=== PATIENT | male | born 1940 | race Caucasian/White ===

== ENCOUNTER 2017-08-03 07:37 | Outpatient (CLI) | payer MEDICARE, BC ==
[2017-08-03 08:20] LABS: Estimated GFR-MDRD - POC Greater than 90
[2017-08-03 08:32] LABS: Bilirubin Negative (Negative); Blood, Urine Negative (Negative); Clarity CLEAR (Clear); Glucose, Urine (Dipstick) Negative (Negative); Leukocyte Negative (Negative); Nitrite Negative (Negative); Protein, Urine (Dipstick) Negative (Neg-Trace); Specific Gravity, Urine 1.013 (1.002-1.036); Urobilinogen 0.2 mg/dL (0.2-1.0); pH, Urine 6.5 (5.0-9.0)
[2017-08-03 08:34] LABS: Bacteria/HPF None Seen HPF (None Seen); Hyaline Casts/LPF 0-3 HYALINE CAST LPF (0-3 Hyaline); RBC/HPF 0-3 HPF (0-3); Squamous Epithelial None Seen HPF (0-3); WBC/HPF None Seen HPF (0-3)
--- NOTE | 2017-08-03 10:13 | CT ---
CT OF THE ABDOMEN AND PELVIS WITHOUT AND WITH CONTRAST: COMPARISON: None. HISTORY: Gross hematuria for a month. History of renal stones. History of colon cancer. TECHNIQUE: Multiple contiguous axial images were obtained in a CT of the abdomen and pelvis without and with IV contrast. Postcontrast images were obtained in the nephrographic and excretory phases. Coronal refo rmats were performed. FINDINGS: There are subcentimeter hypodensities in the liver which are too small to definitely characterize but likely represent cysts. There are hypodensities in both kidneys measuring up to 3.8 cm in size whic h represent simple cysts. No suspicious lesions are seen in either kidney. There is a punctate 1 mm calcification in the mid portion of the right kidney. No other calcifications are seen I neither ki dney. No hydronephrosis is seen. Both renal collecting systems are normal in appearance without yunior ling defect. The prostate is enlarged. There is mild thickening of the anterior aspect of the urina ry bladder wall without focal bladder mass. The gallbladder, adrenal glands, spleen, and pancreas are unremarkable. No free air, free fluid, or stranding changes are seen in the abdomen or pelvis. The large and small bowel are unremarkable. The appendix is not seen and may have been removed. No abdominal or pelvic lymphadenopathy are seen. Atherosclerotic calcifications are seen in the aorta. Degenerative changes are seen in the spine. The visualized inferior thorax and abdominal wall soft t issues are unremarkable. IMPRESSION: 1. Bilateral renal cysts. 2. Hepatic cysts. 3. Nonobstructing small right renal calcification. POS: [facility]
[2017-08-03] MEDS ORDERED: Iopamidol 370 76% 100 ML VIAL ONE (16:42)
== END 2017-08-03 07:38 | disposition home or self-care (01) ==
LOC: CT 07:37
PROVIDERS: ATTEND Urology
DX: R31.0 Gross hematuria (principal); N28.1 Cyst of kidney, acquired; N20.0 Calculus of kidney; K76.89 Other specified diseases of liver
CPT/HCPCS: 74178; 81001; 82565; 87086

== ENCOUNTER 2017-10-03 06:43 | Emergency (ER) | payer MEDICARE, BC ==
[2017-10-03] MEDS ORDERED: diphenhydrAMINE 50 MG/ML VIAL ONE (07:19)
[2017-10-03] MEDS ORDERED: Water For Inject, Bacteriostat 30 ML ONE (07:19)
[2017-10-03] MEDS ORDERED: Metoclopramide HCl 10 MG/2 ML VIAL ONE (07:19)
[2017-10-03] MEDS ORDERED: methylPREDNISolone Sod Succ/PF 125 MG/2 ML VIAL ONE (07:19)
[2017-10-03] MEDS ORDERED: Ketorolac Tromethamine 30 MG/ML VIAL ONE (08:16)
--- NOTE | 2017-10-03 08:52 | CT ---
CT OF BRAIN PERFORMED WITHOUT CONTRAST ENHANCEMENT: Date: 10/03/17 HISTORY: Headache. History of colon cancer. FINDINGS: There is generalized ventricular and sulcal prominence. There are no signs of intracerebral hemorrhag e or extra-axial fluid collections. Mastoid air cells are clear. Minimal mucosal change is seen withi n the ethmoid air cells. IMPRESSION: No acute intracranial abnormalities. POS: [facility]
== END 2017-10-03 09:26 | disposition home or self-care (01) ==
LOC: SCSER 06:43
DX: J30.2 Other seasonal allergic rhinitis (principal); R51 Headache; E11.9 Type 2 diabetes mellitus without complications; I10 Essential (primary) hypertension; K21.9 Gastro-esophageal reflux disease without esophagitis; M10.9 Gout, unspecified; Z79.84 Long term (current) use of oral hypoglycemic drugs; Z79.899 Other long term (current) drug therapy; Z85.038 Personal history of other malignant neoplasm of large intestine
CPT/HCPCS: 70450; 96365; 96375; J1200; J1885; J2765; J2930

== ENCOUNTER 2017-12-01 09:11 | Outpatient (CLI) | payer MEDICARE, BC | END 2017-12-01 09:12 | disposition home or self-care (01) | LOC: BICULT 09:11 | PROVIDERS: ATTEND Specialist | DX: E04.1 Nontoxic single thyroid nodule (principal); E04.2 Nontoxic multinodular goiter | CPT/HCPCS: 76536 ==

== ENCOUNTER → 2017-12-28 | Day surgery (SDC) | payer MEDICARE, BC ==
[~2017-12-28] MED LIST: Prevnar 13-Val Conj/PF 0.5 ML SYRINGE IM ONE
--- NOTE | 2017-12-28 13:41 | ULT ---
SONOGRAPHIC GUIDED FNA RIGHT THYROID MASS: HISTORY: Right thyroid nodule, containing calcifications. FINDINGS: After explaining the procedure and answering all questions, sonographic survey of the thyroid gland c onfirms a partially calcified mass at the inferior aspect right thyroid lobe. Sterile technique, buffered local anesthesia, sonographic guidance, and a medial approach were used t o carefully advance a 25 gauge needle to the mass. Back and forth motion was used to obtain an FNA s ample. A total of four samples were obtained and submitted to pathology for evaluation. Post proced ure imaging shows no evidence of complication. The patient tolerated the procedure well and was dism issed in good condition. IMPRESSION: Technically successful sonographic guided fine needle aspiration, right thyroid lobe mass. Pathology is pending. POS: [facility]
== END ==
LOC: ULT 10:14
PROVIDERS: ATTEND Specialist
PROC: 0GBH3ZX Excision of Right Thyroid Gland Lobe, Percutaneous Approach, Diagnostic (ICD-10-PCS; principal; 2017-12-28)
DX: E04.2 Nontoxic multinodular goiter (principal); E11.9 Type 2 diabetes mellitus without complications; J32.9 Chronic sinusitis, unspecified; I10 Essential (primary) hypertension; M10.9 Gout, unspecified; Z87.891 Personal history of nicotine dependence; Z79.899 Other long term (current) drug therapy; Z79.82 Long term (current) use of aspirin; Z90.49 Acquired absence of other specified parts of digestive tract
CPT/HCPCS: 10022; 76942; 88173

== ENCOUNTER 2019-02-08 09:14 | Outpatient (CLI) | payer MEDICARE, BC ==
--- NOTE | 2019-02-08 10:08 | ULT ---
Thyroid ultrasound: 02/08/2019 COMPARISON: 12/01/2017 HISTORY: Reevaluate thyroid nodules TECHNIQUE: Multiplanar grayscale sonographic imaging of the thyroid gland obtained. FINDINGS: The thyroid isthmus measures 2 mm in AP dimension. The right lobe measures 3.5 x 1.1 x 1.6 cm and the left lobe measures 3.3 x 1.6 x 1.5 cm. There are 3 small nodules within the right lobe measuring 3 x 3 x 3 mm, 6 x 9 x 11 mm, and 9 x 9 x 6 mm. All 3 nodules are heterogeneously hypoechoic, the 2 larger nodules demonstrating faint internal calcificati on. These nodules appear grossly unchanged when compared to the prior exam. Within the inferior aspect of the left lobe there is a hypoechoic solid nodule measuring approximatel y 1.0 x 1.1 x 0.9 cm, not significantly changed when compared to the prior exam. An additional vague solid hypoechoic nodule is noted within the left lobe superiorly measuring approximately 9 x 8 x 6 mm. No new nodules are identified. IMPRESSION: No significant interval change in multiple thyroid nodules as detailed above. The most geller spicious nodule is noted located on the right and is consistent with a TI-RADS category 4 nodule. This nodule is unchanged when compared to the prior examination and was biopsied on 12/28/2017. No new findings.
== END 2019-02-08 09:15 | disposition home or self-care (01) ==
LOC: SCSULT 09:14
PROVIDERS: ATTEND Specialist
DX: E04.1 Nontoxic single thyroid nodule (principal)
CPT/HCPCS: 76536

== ENCOUNTER 2019-06-22 07:53 | Outpatient (CLI) | payer MEDICARE, BC ==
[2019-06-22 11:37] LABS: Hemoglobin 14.2 g/dL (14.0-18.0); Mean Corpuscular HGB CONC 32.4 g/dL (32.0-36.0); Mean Corpuscular Hemoglobin 32.8 pg (27.0-31.0); Mean Platelet Volume 7.6 fL (7.4-10.4); Platelet Count 190 thou/uL (130-400); RBC Distribution Width 13.2 % (11.5-14.5); Red Blood Cell (RBC) Count 4.31 mill/uL (4.70-6.10); White Blood Cell (WBC) Count 6.3 thou/uL (4.8-10.8)
[2019-06-22 11:41] LABS: Bacteria/HPF None Seen HPF (None Seen); Bilirubin Negative (Negative); Blood, Urine Negative (Negative); Clarity Clear (Clear); Glucose, Urine (Dipstick) Normal (Negative); Leukocyte Negative Leu/uL (Negative); Nitrite Negative (Negative); Protein, Urine (Dipstick) Negative (Neg-Trace); RBC/HPF 0-3 HPF (0-3); Squamous Epithelial None Seen HPF (0-3); Urobilinogen Normal mg/dL (Less than 2); WBC/HPF 0-3 HPF (0-3)
[2019-06-22 12:03] LABS: PTT 31.8 SEC (22.9-36.1); Prothrombin Time 13.4 SEC (12.0-14.7)
[2019-06-22 12:10] LABS: Anion Gap 9 mmol/L (10-20); BUN (Urea Nitrogen) 14 mg/dL (8.4-25.7); Calc. Creatinine Clearance 0 mL/min (70-130); Calcium 9.8 mg/dL (7.8-10.44); Carbon Dioxide 29 mmol/L (23-31); Chloride 100 mmol/L (98-107); Estimated GFR-MDRD Greater than 90; Glucose 99 mg/dL (83-110); Potassium 4.3 mmol/L (3.5-5.1); Sodium 134 mmol/L (136-145)
== END 2019-06-22 07:54 | disposition home or self-care (01) ==
LOC: LABBT 07:53
PROVIDERS: ATTEND Urology
DX: Z01.818 Encounter for other preprocedural examination (principal); N40.1 Benign prostatic hyperplasia with lower urinary tract symptoms; N13.8 Other obstructive and reflux uropathy; R31.0 Gross hematuria; N20.0 Calculus of kidney; M47.812 Spondylosis without myelopathy or radiculopathy, cervical region; R35.1 Nocturia
CPT/HCPCS: 80048; 81001; 85027; 85610; 85730; 87086; 93005; 93010

== ENCOUNTER → 2021-03-26 | Outpatient (CLI) | payer MEDICARE, BC ==
[2020-08-29 17:55] LABS: SARS-CoV-2 PCR by NAA Not Detected (NotDetected)
[2021-03-26 13:33] LABS: INR-International Normal Ratio 0.9; Mean Corpuscular HGB CONC 32.7 g/dL (32.0-36.0); Mean Corpuscular Hemoglobin 33.2 pg (27.0-33.0); Mean Corpuscular Volume 101.8 fl (81.2-95.1); Mean Platelet Volume 10.3 fl (7.4-10.4); PTT 28.5 sec (22.0-33.0); Platelet Count 207 10x3/uL (150-450); Prothrombin Time 10.3 sec (9.5-12.1); RBC Distribution Width 14.6 % (11.5-14.5); Red Blood Cell (RBC) Count 3.91 10x6/uL (4.32-5.72); White Blood Cell (WBC) Count 5.2 10x3/uL (3.5-10.5)
[2021-03-26 13:38] LABS: Bilirubin Neg (Negative); Blood, Urine Negative (Negative); Clarity Clear (Clear); Glucose, Urine (Dipstick) Normal (Negative); Ketone, Urine Negative (Negative); Leukocyte Negative (Negative); Nitrite Negative (Negative); Protein, Urine (Dipstick) 15 mg/dl (Neg-Trace); Urobilinogen Normal mg/dL (Less than 2)
[2021-03-26 13:50] LABS: Bacteria/HPF None Seen HPF (None Seen); RBC/HPF None Seen HPF (0-3); Squamous Epithelial None Seen HPF (0-3); WBC/HPF None Seen HPF (0-3)
[2021-03-26 14:02] LABS: Anion Gap 13 mmol/L (10-20); BUN (Urea Nitrogen) 17 mg/dL (8.4-25.7); Calc. Creatinine Clearance 0 mL/min (70-130); Calcium 9.3 mg/dL (7.8-10.44); Carbon Dioxide 26 mmol/L (23-31); Chloride 100 mmol/L (98-107); Glucose 119 mg/dL (83-110); Potassium 4.2 mmol/L (3.5-5.1); Sodium 135 mmol/L (136-145)
[2021-03-26 21:47] LABS: SARS-CoV-2 PCR by NAA Not Detected (NotDetected)
== END ==
LOC: LABBT 08:00
PROVIDERS: ATTEND Internal Medicine Gastroenterology
DX: Z01.818 Encounter for other preprocedural examination (principal); N40.1 Benign prostatic hyperplasia with lower urinary tract symptoms; N13.8 Other obstructive and reflux uropathy; R31.0 Gross hematuria; N20.0 Calculus of kidney; M47.812 Spondylosis without myelopathy or radiculopathy, cervical region; R35.1 Nocturia; Z20.822 Contact with and (suspected) exposure to COVID-19
CPT/HCPCS: 80048; 81001; 85027; 85610; 85730; 87086; 93005; U0003 ×2; U0005 ×2; 93010

== ENCOUNTER 2021-03-29 06:10 | Day surgery (SDC) | payer MEDICARE, BC ==
[2021-03-28 10:35] VITALS: BMI 25.8
[2021-03-29] MEDS ORDERED: Levofloxacin 500 mg/D5W 100 ml Premix Bag ONE (06:37)
[2021-03-29] MEDS ORDERED: Propofol 500 MG/50 ML VIAL ONE (07:19)
[2021-03-29] MEDS ORDERED: Meperidine HCl/PF 25 MG/ML VIAL ONE (07:19)
[2021-03-29] MEDS ORDERED: B & O ONE (07:26)
[2021-03-29] MEDS ORDERED: Fioricet 325/50/40 mg Tablet PO SCH (10:30)
== END 2021-03-29 10:39 | disposition home or self-care (01) ==
LOC: SDC 06:10
PROVIDERS: ATTEND Urology
PROC: 0T7D8DZ Dilation of Urethra with Intraluminal Device, Via Natural or Artificial Opening Endoscopic (ICD-10-PCS; principal; 2021-03-29)
DX: N40.1 Benign prostatic hyperplasia with lower urinary tract symptoms (principal); N13.8 Other obstructive and reflux uropathy; E11.9 Type 2 diabetes mellitus without complications; I10 Essential (primary) hypertension; Z79.82 Long term (current) use of aspirin; Z79.84 Long term (current) use of oral hypoglycemic drugs; Z79.899 Other long term (current) drug therapy; Z86.16 Personal history of COVID-19
CPT/HCPCS: C9740; L8699; J1956; J2175; J2704

== ENCOUNTER 2023-04-14 16:41 | Outpatient (CLI) | payer MEDICARE, BC | END 2023-04-14 16:42 | disposition home or self-care (01) | LOC: SCSRAD 16:41 | PROVIDERS: ATTEND Nurse Practitioner Family | DX: R07.81 Pleurodynia (principal) ==